=== PATIENT | female | born 1965 | race Caucasian/White ===

== ENCOUNTER 2016-11-05 21:33 | Emergency (ER) | payer MEDICAID ==
[~2016-11-05] VITALS: Ht 170.2 cm; Wt 113.8 kg
[~2016-11-05 21:33] MED LIST: AMOX875T PO; GABA300C10 PO; INSU100V10 SC; INSU100V13 SC; LINA1TAB5 PO; METF500T3 PO; SIMV20TA3 PO; Will bring list DOS
[2016-11-05 21:34] VITALS: BP 157/91
== END 2016-11-05 22:17 | disposition home or self-care (01) ==
LOC: ED 22:11
DX: L02.31 Cutaneous abscess of buttock (principal); E78.00 Pure hypercholesterolemia, unspecified; E11.9 Type 2 diabetes mellitus without complications; F12.10 Cannabis abuse, uncomplicated
CPT/HCPCS: 99282

== ENCOUNTER 2016-11-07 20:34 | Inpatient (IN) | payer MEDICAID ==
[~2016-11-07] VITALS: Ht 175.3 cm; Wt 95.5 kg
[~2016-11-07 20:34] MED LIST changes: +INSULIN ASPART 100 UNITS/ML, PEN ONE
[2016-11-07] MEDS ORDERED: ZIPRASIDONE 20 MG INJ IM ONE ×2 (21:12→21:30)
[2016-11-07 21:13] LABS: DAU SCREEN DISCLAIMER
[2016-11-07 22:16] LABS: HEMOGLOBIN 14.2 g/dL (11.7-16.4)
[2016-11-07 22:24] LABS: BLOOD UREA NITROGEN 17 mg/dL (7-18)
[2016-11-07] MEDS ORDERED: LORazepam 2 MG/ML, 1ML ONE (22:25)
[2016-11-07] MEDS ORDERED: LORazepam 2 MG/ML, 1ML IVPush ONE (22:30)
[2016-11-08] MEDS ORDERED: INSULIN REGULAR 100 UNITS/ML, 3ML VIAL SQ-INSULIN ONE (06:30)
[2016-11-08] MEDS ORDERED: LORazepam 2 MG/ML, 1ML ONE (07:19)
[2016-11-08] MEDS ORDERED: DIPHENHYDRAMINE 50 MG/ML, 1ML ONE (07:19)
[2016-11-08] MEDS ORDERED: LORazepam 2 MG/ML, 1ML IM ONE (07:30)
[2016-11-08] MEDS ORDERED: DIPHENHYDRAMINE 50 MG/ML, 1ML IM ONE (07:30)
[2016-11-08] MEDS ORDERED: ZIPRASIDONE 20 MG INJ IM ONE ×2 (08:00→09:09)
[2016-11-08] MEDS ORDERED: LORazepam 2 MG/ML, 1ML IVPush PRN (14:00)
[2016-11-08] MEDS ORDERED: DOCUSATE 100 MG CAPSULE PO PRN (14:00)
[2016-11-08] MEDS ORDERED: GUAIFENESIN/DM 200-20MG, 10ML UDC PO PRN (14:00)
[2016-11-08] MEDS ORDERED: ENOXAPARIN 40 MG/0.4 ML SQ SCH (14:00)
[2016-11-08] MEDS ORDERED: ACETAMINOPHEN 325 MG TABLET PO PRN (14:00)
[2016-11-08] MEDS: GABAPENTIN 300 MG CAPSULE PO SCH ×2 (16:30→21:06)
[2016-11-08] MEDS ORDERED: INSULIN ASPART 100 UNITS/ML, PEN SQ-INSULIN SCH ×2 (16:30→21:00)
[2016-11-08] MEDS ORDERED: INSULIN REGULAR 100 UNITS/ML, 3ML VIAL SQ-INSULIN SCH (16:30)
[2016-11-08 18:09] VITALS: BP 159/80
[2016-11-08 19:47] VITALS: BP 155/88
[2016-11-08] MEDS ORDERED: ZIPRASIDONE 20MG CAPSULE PO SCH (21:00)
[2016-11-08] MEDS ORDERED: SIMVASTATIN 20 MG TABLET PO SCH (21:00)
[2016-11-08] MEDS ORDERED: INSULIN DETEMIR 85 UNIT SC SCH (21:00)
[2016-11-09] MEDS ORDERED: INSULIN DETEMIR 100 UNITS/ML, PEN SQ-INSULIN SCH (08:00)
[2016-11-09] MEDS ORDERED: NICOTINE 21 MG/24 HR PATCH.TD24 TD SCH (09:00)
== END 2016-11-08 22:54 | DRG 897 ==
LOC: ED 21:16 → EDIP 11-08 06:27 → OBSVTOIN 11-08 13:43 → 3E 11-08 17:56
PROVIDERS: ADMIT Family Medicine; ATTEND Family Medicine
DX: F15.959 Other stimulant use, unspecified with stimulant-induced psychotic disorder, unspecified (principal); F23 Brief psychotic disorder; E11.65 Type 2 diabetes mellitus with hyperglycemia; F22 Delusional disorders; E78.5 Hyperlipidemia, unspecified; F32.9 Major depressive disorder, single episode, unspecified; Z72.0 Tobacco use
CPT/HCPCS: 36415; 70450; 80048; 80307; 82040; 82962; 84439; 84443; 84703; 85025; 93005; 96372; 96374; G0378; J1650; J1815; J3486; J1200; J2060

== ENCOUNTER 2016-11-21 21:44 | Emergency (ER) | payer MEDICAID ==
[~2016-11-21] VITALS: Ht 170.2 cm; Wt 128.1 kg
[~2016-11-21 21:44] MED LIST changes: -INSULIN ASPART 100 UNITS/ML, PEN ONE
[2016-11-21 22:58] LABS: BLOOD UREA NITROGEN 18 mg/dL (7-18)
[2016-11-22] MEDS ORDERED: FUROSEMIDE 20 MG TABLET PO ONE (00:30)
[2016-11-22 02:08] VITALS: BP 147/76
== END 2016-11-22 02:10 | disposition home or self-care (01) ==
LOC: ED 11-22 02:04
DX: L05.91 Pilonidal cyst without abscess (principal); L03.317 Cellulitis of buttock; R60.0 Localized edema; E11.9 Type 2 diabetes mellitus without complications; E78.00 Pure hypercholesterolemia, unspecified
CPT/HCPCS: 36415; 71020; 80048; 82040; 83880; 85025; 93005; 99285

== ENCOUNTER 2016-12-10 07:25 | Emergency (ER) | payer MEDICAID ==
[~2016-12-10] VITALS: Ht 170.2 cm; Wt 119.7 kg
[2016-12-10] MEDS ORDERED: MULT-6 PO (08:14)
[2016-12-10 08:31] LABS: BLOOD UREA NITROGEN 18 mg/dL (7-18)
[2016-12-10 09:04] VITALS: BP 141/87
== END 2016-12-10 09:35 | disposition home or self-care (01) ==
LOC: ED 08:39
DX: L03.032 Cellulitis of left toe (principal); L03.031 Cellulitis of right toe; E10.622 Type 1 diabetes mellitus with other skin ulcer; E11.9 Type 2 diabetes mellitus without complications; F17.210 Nicotine dependence, cigarettes, uncomplicated
CPT/HCPCS: 36415; 80048; 82040; 85025; 85651; 86141; 99285

== ENCOUNTER 2017-01-01 15:05 | Emergency (ER) | payer MEDICAID ==
[~2017-01-01] VITALS: Ht 170.2 cm; Wt 108.3 kg
[~2017-01-01 15:05] MED LIST changes: +MULT-6 PO
[2017-01-01 16:50] LABS: BLOOD UREA NITROGEN 12 mg/dL (7-18)
[2017-01-01 16:53] LABS: ASPARTATE AMINO TRANSFERASE 32 U/L (15-37)
[2017-01-01 18:01] VITALS: BP 128/80
[2017-01-01] MEDS ORDERED: MAGNESIUM CITRATE 300ML ORAL SOL PO ONE (19:30)
[2017-01-01] MEDS ORDERED: MAGNESIUM CITRATE 300ML ORAL SOL ONE (19:31)
== END 2017-01-01 19:44 | disposition home or self-care (01) ==
LOC: ED 19:03
DX: K59.00 Constipation, unspecified (principal); L89.892 Pressure ulcer of other site, stage 2; E11.621 Type 2 diabetes mellitus with foot ulcer; L97.511 Non-pressure chronic ulcer of other part of right foot limited to breakdown of skin; L97.512 Non-pressure chronic ulcer of other part of right foot with fat layer exposed; E78.00 Pure hypercholesterolemia, unspecified
CPT/HCPCS: 36415; 74020; 80053; 85025

== ENCOUNTER 2017-06-17 16:46 | Inpatient (IN) | payer MEDICAID ==
[~2017-06-17] VITALS: Ht 170.2 cm; Wt 102.8 kg
[~2017-06-17 16:46] MED LIST changes: +ACET650S12 PR; +AMPI3VIA IV; +DOCU-131 PO; +ERGO500017 PO; +HEPA50002 SQ; +HYDR20VI3 IVPush; +INSU100I18 SQ-INSULIN; +INSU100I28 SQ-INSULIN; -INSU100V10 SC; +INSU100V11 SC; +ONDA4VIA4 IVPush; +OXYC5SOL8 PO; +ZOLP5TAB PO
[2017-06-17] MEDS ORDERED: SODIUM CHLORIDE FLUSH 10ML SYR IVF ONE (17:30)
[2017-06-17 18:08] LABS: HEMATOCRIT 39.1 % (34.6-47.8); HEMOGLOBIN 13.7 g/dL (11.7-16.4); WHITE BLOOD COUNT 12.4 x10^3/uL (3.4-10)
[2017-06-17 18:19] LABS: BLOOD UREA NITROGEN 28 mg/dL (7-18)
[2017-06-17] MEDS ORDERED: SODIUM CHLORIDE 0.9% 1,000 ML IV ONE (19:28)
[2017-06-17] MEDS ORDERED: CEFAZOLIN PMX 1GM/50ML 50 ML IV ONE (19:30)
[2017-06-17] MEDS ORDERED: SODIUM CHLORIDE FLUSH 10ML SYR IVF PRN (19:30)
[2017-06-17] MEDS ORDERED: BISACODYL 10 MG SUPP PR PRN (20:00)
[2017-06-17] MEDS ORDERED: VANCOMYCIN PER PHARMACY MC PRN (20:00)
[2017-06-17] MEDS ORDERED: OXYcodone IR 5MG TABLET PO PRN (20:00)
[2017-06-17] MEDS ORDERED: ONDANSETRON 2MG/ML, 2ML IVPush PRN (20:00)
[2017-06-17] MEDS ORDERED: ERGOCALCIFEROL 50,000 UNIT CAPSULE PO SCH (20:00)
[2017-06-17] MEDS ORDERED: POLYETHYLENE GLYCOL 17 GM PACKET PO PRN (20:00)
[2017-06-17] MEDS ORDERED: ACETAMINOPHEN 325 MG TABLET PO PRN (20:00)
[2017-06-17] MEDS ORDERED: CEFAZOLIN PMX 1GM/50ML 50 ML ONE (20:29)
[2017-06-17] MEDS: SODIUM CHLORIDE 0.9% 1,000 ML IV SCH (20:34)
[2017-06-17] MEDS ORDERED: ZOLPIDEM 5MG TABLET PO SCH (21:00)
[2017-06-17] MEDS: SIMVASTATIN 20 MG TABLET PO SCH (21:00)
[2017-06-17] MEDS: GABAPENTIN 300 MG CAPSULE PO SCH (21:00)
[2017-06-17] MEDS ORDERED: INSULIN ASPART 100 UNITS/ML, PEN SQ-INSULIN SCH (21:00)
[2017-06-17] MEDS ORDERED: PHARMACOKINETIC MONITORING MC PRN (22:00)
[2017-06-17] MEDS ORDERED: PHARMACOKINETIC CONSULTATION MC ONE (22:00)
[2017-06-18] MEDS: PIPERACILLIN/TAZO/PMX 3.375GM 50 ML IV SCH ×4 (00:15→18:09)
[2017-06-18] MEDS: morphine SULFATE 10 MG/ML, 1ML IVPush PRN ×6 (00:15→16:06)
[2017-06-18] MEDS: HEPARIN 5,000 UNITS/ML, 1ML SQ SCH ×3 (00:16→15:49)
[2017-06-18] MEDS: VANCOMYCIN 1,600 MG in SODIUM CHLORIDE 0.9% 250 ML IV SCH (01:30)
[2017-06-18 01:42] VITALS: BP 104/68
[2017-06-18] MEDS: INSULIN DETEMIR 100 UNITS/ML, PEN SQ-INSULIN SCH ×3 (01:56→20:24)
[2017-06-18] MEDS: INSULIN ASPART 100 UNITS/ML, 3ML PEN HIGH DOSE SS SQ-INSULIN SCH ×5 (01:56→20:24)
[2017-06-18 02:09] VITALS: BP 122/61
[2017-06-18] MEDS: SODIUM CHLORIDE 0.9% 1,000 ML IV SCH ×2 (05:52→20:26)
[2017-06-18 05:56] LABS: HEMATOCRIT 36.7 % (34.6-47.8); HEMOGLOBIN 12.9 g/dL (11.7-16.4); WHITE BLOOD COUNT 10.1 x10^3/uL (3.4-10)
[2017-06-18 06:08] LABS: ASPARTATE AMINO TRANSFERASE 22 U/L (15-37); BLOOD UREA NITROGEN 31 mg/dL (7-18)
[2017-06-18] MEDS ORDERED: GADOBUTROL 10 MMOL/10 ML PFS ONE ×2 (07:47→10:05)
[2017-06-18 08:16] VITALS: BP 97/61
[2017-06-18] MEDS: GABAPENTIN 300 MG CAPSULE PO SCH ×2 (08:19→20:23)
[2017-06-18] MEDS ORDERED: SENNA/DOCUSATE TABLET PO SCH (09:00)
[2017-06-18 13:31] VITALS: BP 110/60
[2017-06-18 13:48] LABS: HCG UR LOT HCG7030192
[2017-06-18 13:56] LABS: HCG UR OBC PASS
[2017-06-18] MEDS ORDERED: MIDAZOLAM 1 MG/ML, 2ML ONE (14:00)
[2017-06-18] MEDS ORDERED: FENTANYL PF 100 MCG/2ML ONE (14:00)
[2017-06-18] MEDS ORDERED: ROCURONIUM 10 MG/ML,10ML ONE (14:01)
[2017-06-18] MEDS ORDERED: SUCCINYLCHOLINE 20 MG/ML, 10ML ONE (14:01)
[2017-06-18] MEDS ORDERED: NEOSTIGMINE 1 MG/ML, 10ML ONE (14:01)
[2017-06-18] MEDS ORDERED: GLYCOPYRROLATE 0.2MG/1ML, 5ML ONE (14:01)
[2017-06-18] MEDS ORDERED: PROPOFOL 10 MG/ML, 20ML ONE (14:01)
[2017-06-18] MEDS ORDERED: hydrALAzine 20 MG/ML, 1ML IV PRN (14:30)
[2017-06-18] MEDS ORDERED: OXYcodone 5 MG/5 ML ORAL.SOL UDC PO PRN (14:30)
[2017-06-18] MEDS ORDERED: FENTANYL PF 100 MCG/2ML IV PRN (14:30)
[2017-06-18] MEDS ORDERED: ONDANSETRON 2MG/ML, 2ML IVPush PRN ×2 (14:30→19:00)
[2017-06-18] MEDS ORDERED: HYDROmorphone 1 MG/ML, 1ML IV PRN (14:30)
[2017-06-18] MEDS ORDERED: ACETAMINOPHEN 325 MG TABLET PO PRN ×2 (14:30→19:00)
[2017-06-18] MEDS ORDERED: LABETALOL 5MG/ML, 20ML IV PRN (14:30)
[2017-06-18] MEDS ORDERED: METOCLOPRAMIDE 5 MG/ML, 2ML IV PRN (14:30)
[2017-06-18] MEDS ORDERED: OXYcodone IR 5MG TABLET ONE (18:31)
[2017-06-18 18:58] VITALS: BP 100/53
[2017-06-18] MEDS ORDERED: BISACODYL 10 MG SUPP PR PRN (19:00)
[2017-06-18] MEDS: SIMVASTATIN 20 MG TABLET PO SCH (20:23)
[2017-06-18] MEDS: ZOLPIDEM 5MG TABLET PO SCH (21:00)
[2017-06-18] MEDS: OXYcodone IR 5MG TABLET PO PRN (22:43)
[2017-06-19] MEDS: PIPERACILLIN/TAZO/PMX 3.375GM 50 ML IV SCH ×4 (00:21→18:19)
[2017-06-19] MEDS: HEPARIN 5,000 UNITS/ML, 1ML SQ SCH ×3 (00:21→16:19)
[2017-06-19 01:37] VITALS: BP 100/64
[2017-06-19] MEDS: VANCOMYCIN 1,600 MG in SODIUM CHLORIDE 0.9% 250 ML IV SCH (02:07)
[2017-06-19] MEDS: OXYcodone IR 5MG TABLET PO PRN ×3 (05:26→18:29)
[2017-06-19] MEDS: INSULIN ASPART 100 UNITS/ML, 3ML PEN HIGH DOSE SS SQ-INSULIN SCH ×4 (07:00→21:15)
[2017-06-19 08:06] VITALS: BP 96/62
[2017-06-19] MEDS: INSULIN DETEMIR 100 UNITS/ML, PEN SQ-INSULIN SCH ×2 (08:13→21:15)
[2017-06-19] MEDS: SODIUM CHLORIDE 0.9% 1,000 ML IV SCH ×2 (08:14→18:19)
[2017-06-19] MEDS: SENNA/DOCUSATE TABLET PO SCH (08:14)
[2017-06-19] MEDS: GABAPENTIN 300 MG CAPSULE PO SCH ×2 (08:14→21:14)
[2017-06-19] MEDS: morphine SULFATE 10 MG/ML, 1ML IVPush PRN ×3 (08:15→19:47)
[2017-06-19 16:38] VITALS: BP 108/70
[2017-06-19 20:13] VITALS: BP 97/60
[2017-06-19] MEDS: ZOLPIDEM 5MG TABLET PO SCH (21:25)
[2017-06-19] MEDS: SIMVASTATIN 20 MG TABLET PO SCH (21:33)
[2017-06-20] MEDS: PIPERACILLIN/TAZO/PMX 3.375GM 50 ML IV SCH ×4 (00:06→21:08)
[2017-06-20] MEDS: morphine SULFATE 10 MG/ML, 1ML IVPush PRN ×7 (00:11→23:59)
[2017-06-20 01:54] VITALS: BP 103/65
[2017-06-20] MEDS: SODIUM CHLORIDE 0.9% 1,000 ML IV SCH ×2 (03:35→14:21)
[2017-06-20] MEDS: INSULIN ASPART 100 UNITS/ML, 3ML PEN HIGH DOSE SS SQ-INSULIN SCH ×4 (07:00→21:00)
[2017-06-20] MEDS: INSULIN DETEMIR 100 UNITS/ML, PEN SQ-INSULIN SCH ×2 (08:00→21:08)
[2017-06-20] MEDS: GABAPENTIN 300 MG CAPSULE PO SCH ×2 (08:15→21:08)
[2017-06-20] MEDS: SENNA/DOCUSATE TABLET PO SCH (08:15)
[2017-06-20 08:40] VITALS: BP 120/72
[2017-06-20] MEDS ORDERED: BUPIVACAINE/PF 0.5% ONE (14:16)
[2017-06-20] MEDS ORDERED: LIDOCAINE/PF 1%, 30ML ONE (14:16)
[2017-06-20] MEDS ORDERED: EPINEPHRINE 1 MG/ML, 1ML ONE (14:17)
[2017-06-20 15:27] VITALS: BP 134/78
[2017-06-20] MEDS ORDERED: FENTANYL PF 100 MCG/2ML ONE ×2 (15:44)
[2017-06-20] MEDS ORDERED: MIDAZOLAM 1 MG/ML, 2ML ONE (15:44)
[2017-06-20] MEDS ORDERED: PROPOFOL 10 MG/ML, 20ML ONE ×2 (15:45→18:41)
[2017-06-20] MEDS ORDERED: ONDANSETRON 2MG/ML, 2ML ONE ×2 (15:46→18:41)
[2017-06-20] MEDS ORDERED: PROMETHAZINE 25 MG/ML, 1ML IV PRN (16:30)
[2017-06-20] MEDS ORDERED: FENTANYL PF 100 MCG/2ML IV PRN (16:30)
[2017-06-20] MEDS ORDERED: ACETAMINOPHEN 325 MG TABLET PO PRN (16:30)
[2017-06-20] MEDS ORDERED: ONDANSETRON 2MG/ML, 2ML IVPush PRN (16:30)
[2017-06-20] MEDS ORDERED: LABETALOL 5MG/ML, 20ML IV PRN (16:30)
[2017-06-20] MEDS ORDERED: HYDROmorphone 1 MG/ML, 1ML IV PRN (16:30)
[2017-06-20] MEDS ORDERED: OXYcodone 5 MG/5 ML ORAL.SOL UDC PO PRN (16:30)
[2017-06-20] MEDS ORDERED: MEPERIDINE/PF 25MG/0.5ML IVPush PRN (16:30)
[2017-06-20] MEDS ORDERED: hydrALAzine 20 MG/ML, 1ML IV PRN (16:30)
[2017-06-20] MEDS ORDERED: ROCURONIUM 10 MG/ML,10ML ONE (18:39)
[2017-06-20] MEDS ORDERED: PIPERACILLIN/TAZO/PMX 3.375GM 50 ML ONE (19:00)
[2017-06-20] MEDS ORDERED: SUCCINYLCHOLINE 20 MG/ML, 10ML ONE (19:34)
[2017-06-20] MEDS ORDERED: ACETAMINOPHEN 650 MG/20.3 ML UDC ONE (20:08)
[2017-06-20] MEDS ORDERED: OXYcodone 5 MG/5 ML ORAL.SOL UDC ONE (20:08)
[2017-06-20 21:00] VITALS: BP 118/64
[2017-06-20] MEDS: ZOLPIDEM 5MG TABLET PO SCH (22:24)
[2017-06-20] MEDS: CIPROFLOXACIN/HYDROCORTISONE EAR SUSP 0.2-1%, 10ML LEFT EAR SCH (22:25)
[2017-06-20] MEDS: SIMVASTATIN 20 MG TABLET PO SCH (22:27)
[2017-06-21] MEDS: morphine SULFATE 10 MG/ML, 1ML IVPush PRN ×6 (03:20→23:46)
[2017-06-21] MEDS: PIPERACILLIN/TAZO/PMX 3.375GM 50 ML IV SCH ×3 (03:22→15:05)
[2017-06-21 03:30] VITALS: BP 122/66
[2017-06-21] MEDS: SODIUM CHLORIDE 0.9% 1,000 ML IV SCH ×2 (05:24→16:21)
[2017-06-21] MEDS: CIPROFLOXACIN/HYDROCORTISONE EAR SUSP 0.2-1%, 10ML LEFT EAR SCH ×2 (05:24→17:10)
[2017-06-21 05:38] LABS: HEMATOCRIT 31.6 % (34.6-47.8); HEMOGLOBIN 10.9 g/dL (11.7-16.4); WHITE BLOOD COUNT 8.7 x10^3/uL (3.4-10)
[2017-06-21 05:49] LABS: BLOOD UREA NITROGEN 19 mg/dL (7-18)
[2017-06-21] MEDS: INSULIN ASPART 100 UNITS/ML, 3ML PEN HIGH DOSE SS SQ-INSULIN SCH ×4 (07:00→20:21)
[2017-06-21 08:00] VITALS: BP 94/53
[2017-06-21] MEDS: INSULIN DETEMIR 100 UNITS/ML, PEN SQ-INSULIN SCH ×2 (09:07→20:30)
[2017-06-21] MEDS: SENNA/DOCUSATE TABLET PO SCH (09:08)
[2017-06-21] MEDS: GABAPENTIN 300 MG CAPSULE PO SCH ×2 (09:08→20:12)
[2017-06-21 14:00] VITALS: BP 105/64
[2017-06-21] MEDS: OXYcodone IR 5MG TABLET PO PRN (17:48)
[2017-06-21 20:01] VITALS: BP 130/72
[2017-06-21] MEDS ORDERED: POLYETHYLENE GLYCOL 17 GM PACKET ONE (20:06)
[2017-06-21] MEDS: PIPERACILLIN/TAZO 3.375 GM in SODIUM CHLORIDE 0.9% 50 ML IV SCH (20:13)
[2017-06-21] MEDS: SIMVASTATIN 20 MG TABLET PO SCH (22:35)
[2017-06-21] MEDS: ZOLPIDEM 5MG TABLET PO SCH (22:35)
[2017-06-22] MEDS: SODIUM CHLORIDE 0.9% 1,000 ML IV SCH ×2 (02:57→13:08)
[2017-06-22] MEDS: morphine SULFATE 10 MG/ML, 1ML IVPush PRN ×3 (02:57→20:39)
[2017-06-22] MEDS: PIPERACILLIN/TAZO 3.375 GM in SODIUM CHLORIDE 0.9% 50 ML IV SCH ×4 (02:57→20:35)
[2017-06-22 03:00] VITALS: BP 126/77
[2017-06-22 05:30] LABS: HEMATOCRIT 31.8 % (34.6-47.8); HEMOGLOBIN 11.2 g/dL (11.7-16.4); WHITE BLOOD COUNT 8.5 x10^3/uL (3.4-10)
[2017-06-22 05:50] LABS: BLOOD UREA NITROGEN 19 mg/dL (7-18)
[2017-06-22] MEDS: INSULIN ASPART 100 UNITS/ML, 3ML PEN HIGH DOSE SS SQ-INSULIN SCH ×4 (07:00→20:37)
[2017-06-22 07:59] VITALS: BP 143/80
[2017-06-22] MEDS: OXYcodone IR 5MG TABLET PO PRN ×3 (10:06→23:05)
[2017-06-22] MEDS: GABAPENTIN 300 MG CAPSULE PO SCH ×2 (10:07→20:35)
[2017-06-22] MEDS: INSULIN DETEMIR 100 UNITS/ML, PEN SQ-INSULIN SCH ×2 (10:07→20:37)
[2017-06-22] MEDS: CIPROFLOXACIN/HYDROCORTISONE EAR SUSP 0.2-1%, 10ML LEFT EAR SCH ×2 (10:07→20:36)
[2017-06-22] MEDS: SENNA/DOCUSATE TABLET PO SCH (10:08)
[2017-06-22 14:00] VITALS: BP 120/68
[2017-06-22 18:52] VITALS: BP 156/80
[2017-06-22] MEDS: SIMVASTATIN 20 MG TABLET PO SCH (20:35)
[2017-06-22] MEDS: ZOLPIDEM 5MG TABLET PO SCH (20:35)
[2017-06-22] MEDS ORDERED: SIMVASTATIN 20 MG TABLET PO SCH (21:00)
[2017-06-23 00:10] VITALS: BP 137/61
[2017-06-23] MEDS: SODIUM CHLORIDE 0.9% 1,000 ML IV SCH ×3 (00:26→22:44)
[2017-06-23] MEDS: morphine SULFATE 10 MG/ML, 1ML IVPush PRN (00:27)
[2017-06-23] MEDS: PIPERACILLIN/TAZO 3.375 GM in SODIUM CHLORIDE 0.9% 50 ML IV SCH (02:39)
[2017-06-23] MEDS: OXYcodone IR 5MG TABLET PO PRN ×4 (05:50→21:01)
[2017-06-23] MEDS: INSULIN ASPART 100 UNITS/ML, 3ML PEN HIGH DOSE SS SQ-INSULIN SCH ×4 (07:00→21:00)
[2017-06-23] MEDS ORDERED: PHARMACY MAY ADJ FOR RENAL FX MC PRN (07:30)
[2017-06-23 08:28] VITALS: BP 136/80
[2017-06-23] MEDS: CIPROFLOXACIN/HYDROCORTISONE EAR SUSP 0.2-1%, 10ML LEFT EAR SCH ×2 (08:53→20:43)
[2017-06-23] MEDS: MEROPENEM 1 GM in SODIUM CHLORIDE 0.9% 100 ML IV SCH ×2 (08:53→16:51)
[2017-06-23] MEDS: INSULIN DETEMIR 100 UNITS/ML, PEN SQ-INSULIN SCH ×2 (08:55→21:00)
[2017-06-23] MEDS: GABAPENTIN 300 MG CAPSULE PO SCH ×2 (08:55→20:44)
[2017-06-23] MEDS: SENNA/DOCUSATE TABLET PO SCH (08:55)
[2017-06-23] MEDS ORDERED: morphine SULFATE 10 MG/ML, 1ML IVPush PRN (09:30)
[2017-06-23 14:53] VITALS: BP 133/82
[2017-06-23 20:21] VITALS: BP 155/94
[2017-06-23] MEDS: ZOLPIDEM 5MG TABLET PO SCH (20:44)
[2017-06-23] MEDS: SIMVASTATIN 20 MG TABLET PO SCH (20:44)
[2017-06-24 00:32] VITALS: BP 131/71
[2017-06-24] MEDS: MEROPENEM 1 GM in SODIUM CHLORIDE 0.9% 100 ML IV SCH ×3 (00:33→17:49)
[2017-06-24] MEDS: OXYcodone IR 5MG TABLET PO PRN ×4 (05:42→21:51)
[2017-06-24] MEDS: INSULIN ASPART 100 UNITS/ML, 3ML PEN HIGH DOSE SS SQ-INSULIN SCH ×4 (07:00→21:03)
[2017-06-24 07:39] VITALS: BP 144/82
[2017-06-24] MEDS ORDERED: ERGOCALCIFEROL 50,000 UNIT CAPSULE PO SCH (09:00)
[2017-06-24] MEDS: CIPROFLOXACIN/HYDROCORTISONE EAR SUSP 0.2-1%, 10ML LEFT EAR SCH ×2 (09:00→21:02)
[2017-06-24] MEDS: SODIUM CHLORIDE 0.9% 1,000 ML IV SCH ×2 (09:10→21:52)
[2017-06-24] MEDS: SENNA/DOCUSATE TABLET PO SCH (09:11)
[2017-06-24] MEDS: GABAPENTIN 300 MG CAPSULE PO SCH ×2 (09:11→21:01)
[2017-06-24] MEDS: INSULIN DETEMIR 100 UNITS/ML, PEN SQ-INSULIN SCH ×2 (09:15→21:02)
[2017-06-24 10:46] LABS: HEMATOCRIT 33.1 % (34.6-47.8); HEMOGLOBIN 11.4 g/dL (11.7-16.4); WHITE BLOOD COUNT 9.9 x10^3/uL (3.4-10)
[2017-06-24 10:57] LABS: BLOOD UREA NITROGEN 14 mg/dL (7-18)
[2017-06-24] MEDS: DAPTOMYCIN IVPB SCH (11:58)
[2017-06-24] MEDS: SODIUM CHLORIDE 0.9% IVPB SCH (11:58)
[2017-06-24 14:00] VITALS: BP 144/76
[2017-06-24 20:31] VITALS: BP 144/79
[2017-06-24] MEDS: ZOLPIDEM 5MG TABLET PO SCH (21:01)
[2017-06-25] MEDS: MEROPENEM 1 GM in SODIUM CHLORIDE 0.9% 100 ML IV SCH ×3 (00:04→17:08)
[2017-06-25 02:13] VITALS: BP 138/86
[2017-06-25] MEDS: INSULIN ASPART 100 UNITS/ML, 3ML PEN HIGH DOSE SS SQ-INSULIN SCH ×4 (07:00→20:32)
[2017-06-25] MEDS: INSULIN DETEMIR 100 UNITS/ML, PEN SQ-INSULIN SCH ×2 (07:28→20:31)
[2017-06-25] MEDS: OXYcodone IR 5MG TABLET PO PRN ×4 (07:28→23:14)
[2017-06-25] MEDS: GABAPENTIN 300 MG CAPSULE PO SCH ×2 (07:29→20:30)
[2017-06-25] MEDS: CIPROFLOXACIN/HYDROCORTISONE EAR SUSP 0.2-1%, 10ML LEFT EAR SCH ×2 (07:29→20:30)
[2017-06-25] MEDS: SENNA/DOCUSATE TABLET PO SCH (07:29)
[2017-06-25] MEDS: SODIUM CHLORIDE 0.9% 1,000 ML IV SCH ×2 (07:29→17:09)
[2017-06-25 08:00] VITALS: BP 126/61
[2017-06-25] MEDS: DAPTOMYCIN IVPB SCH (11:09)
[2017-06-25] MEDS: SODIUM CHLORIDE 0.9% IVPB SCH (11:09)
[2017-06-25 14:00] VITALS: BP 126/81
[2017-06-25] MEDS: ZOLPIDEM 5MG TABLET PO SCH (20:30)
[2017-06-25 20:47] VITALS: BP 146/85
[2017-06-26 01:10] VITALS: BP 149/76
[2017-06-26] MEDS: MEROPENEM 1 GM in SODIUM CHLORIDE 0.9% 100 ML IV SCH ×3 (01:16→16:53)
[2017-06-26] MEDS: SODIUM CHLORIDE 0.9% 1,000 ML IV SCH ×2 (03:48→13:58)
[2017-06-26] MEDS: INSULIN ASPART 100 UNITS/ML, 3ML PEN HIGH DOSE SS SQ-INSULIN SCH ×4 (07:00→20:05)
[2017-06-26 07:16] VITALS: BP 126/73
[2017-06-26] MEDS: INSULIN DETEMIR 100 UNITS/ML, PEN SQ-INSULIN SCH ×2 (08:00→20:04)
[2017-06-26] MEDS: OXYcodone IR 5MG TABLET PO PRN ×3 (08:58→20:05)
[2017-06-26] MEDS: SENNA/DOCUSATE TABLET PO SCH (08:58)
[2017-06-26] MEDS: GABAPENTIN 300 MG CAPSULE PO SCH ×2 (08:58→20:05)
[2017-06-26] MEDS: CIPROFLOXACIN/HYDROCORTISONE EAR SUSP 0.2-1%, 10ML LEFT EAR SCH ×2 (08:59→20:05)
[2017-06-26] MEDS: SODIUM CHLORIDE 0.9% IVPB SCH (12:38)
[2017-06-26] MEDS: DAPTOMYCIN IVPB SCH (12:38)
[2017-06-26 12:51] VITALS: BP 122/78
[2017-06-26 19:55] VITALS: BP 130/79
[2017-06-26] MEDS: ZOLPIDEM 5MG TABLET PO SCH (20:05)
[2017-06-27] MEDS: MEROPENEM 1 GM in SODIUM CHLORIDE 0.9% 100 ML IV SCH ×3 (00:30→16:57)
[2017-06-27] MEDS: SODIUM CHLORIDE 0.9% 1,000 ML IV SCH ×3 (00:30→20:16)
[2017-06-27 01:52] VITALS: BP 113/72
[2017-06-27] MEDS: OXYcodone IR 5MG TABLET PO PRN ×4 (07:16→20:16)
[2017-06-27] MEDS: INSULIN ASPART 100 UNITS/ML, 3ML PEN HIGH DOSE SS SQ-INSULIN SCH ×4 (07:20→20:28)
[2017-06-27 07:27] VITALS: BP 116/75
[2017-06-27] MEDS: GABAPENTIN 300 MG CAPSULE PO SCH ×2 (08:35→20:16)
[2017-06-27] MEDS: CIPROFLOXACIN/HYDROCORTISONE EAR SUSP 0.2-1%, 10ML LEFT EAR SCH (08:35)
[2017-06-27] MEDS: SENNA/DOCUSATE TABLET PO SCH (08:35)
[2017-06-27] MEDS: INSULIN DETEMIR 100 UNITS/ML, PEN SQ-INSULIN SCH ×2 (08:36→20:55)
[2017-06-27] MEDS: SODIUM CHLORIDE 0.9% IVPB SCH (11:07)
[2017-06-27] MEDS: DAPTOMYCIN IVPB SCH (11:07)
[2017-06-27 13:13] VITALS: BP 120/79
[2017-06-27 20:01] VITALS: BP 112/68
[2017-06-27] MEDS: ZOLPIDEM 5MG TABLET PO SCH (20:55)
[2017-06-28] MEDS: MEROPENEM 1 GM in SODIUM CHLORIDE 0.9% 100 ML IV SCH ×3 (01:13→18:17)
[2017-06-28 01:45] VITALS: BP 146/77
[2017-06-28] MEDS: OXYcodone IR 5MG TABLET PO PRN ×4 (02:54→19:43)
[2017-06-28] MEDS: SODIUM CHLORIDE 0.9% 1,000 ML IV SCH ×2 (06:06→18:17)
[2017-06-28] MEDS: INSULIN ASPART 100 UNITS/ML, 3ML PEN HIGH DOSE SS SQ-INSULIN SCH ×4 (07:00→21:00)
[2017-06-28 08:39] VITALS: BP 142/80
[2017-06-28] MEDS: SENNA/DOCUSATE TABLET PO SCH (08:49)
[2017-06-28] MEDS: GABAPENTIN 300 MG CAPSULE PO SCH ×2 (08:50→19:43)
[2017-06-28] MEDS: INSULIN DETEMIR 100 UNITS/ML, PEN SQ-INSULIN SCH ×2 (08:52→22:04)
[2017-06-28] MEDS: SODIUM CHLORIDE 0.9% IVPB SCH (11:11)
[2017-06-28] MEDS: DAPTOMYCIN IVPB SCH (11:11)
[2017-06-28 14:11] VITALS: BP 140/78
[2017-06-28] MEDS: HEPARIN 5,000 UNITS/ML, 1ML SQ SCH (18:16)
[2017-06-28 21:21] VITALS: BP 114/67
[2017-06-28] MEDS: ZOLPIDEM 5MG TABLET PO SCH (21:54)
[2017-06-29] MEDS: HEPARIN 5,000 UNITS/ML, 1ML SQ SCH ×2 (00:33→09:07)
[2017-06-29] MEDS: MEROPENEM 1 GM in SODIUM CHLORIDE 0.9% 100 ML IV SCH ×2 (00:33→09:07)
[2017-06-29] MEDS: OXYcodone IR 5MG TABLET PO PRN ×3 (01:46→13:12)
[2017-06-29 02:36] VITALS: BP 118/72
[2017-06-29] MEDS: SODIUM CHLORIDE 0.9% 1,000 ML IV SCH (03:34)
[2017-06-29 06:37] VITALS: BP 120/77
[2017-06-29] MEDS: INSULIN ASPART 100 UNITS/ML, 3ML PEN HIGH DOSE SS SQ-INSULIN SCH ×2 (07:00→11:00)
[2017-06-29 08:20] LABS: HEMATOCRIT 32.4 % (34.6-47.8); HEMOGLOBIN 11.3 g/dL (11.7-16.4)
[2017-06-29 08:31] LABS: BLOOD UREA NITROGEN 16 mg/dL (7-18)
[2017-06-29] MEDS: INSULIN DETEMIR 100 UNITS/ML, PEN SQ-INSULIN SCH (09:06)
[2017-06-29] MEDS: GABAPENTIN 300 MG CAPSULE PO SCH (09:07)
[2017-06-29] MEDS: SENNA/DOCUSATE TABLET PO SCH (09:07)
[2017-06-29] MEDS ORDERED: DOXYCYCLINE 100MG TABLET PO SCH (11:00)
[2017-06-29] MEDS ORDERED: MUPI22OI2 TP (13:04)
[2017-06-29] MEDS ORDERED: DOXY100T PO (13:04)
[2017-06-29 14:00] VITALS: BP 122/76
[2017-06-29] MEDS ORDERED: MUPIROCIN OINT 2%, 22GM TP SCH (18:00)
== END 2017-06-29 16:30 | DRG 616 ==
LOC: ED 17:54 → EDIP 19:29 → 3NE 21:15 → UNDODISIN 06-18 17:01
PROVIDERS: ADMIT Hospitalist; ATTEND Hospitalist
PROC: 0JBR0ZZ Excision of Left Foot Subcutaneous Tissue and Fascia, Open Approach (ICD-10-PCS; 2017-06-18)
PROC: 0JBR0ZZ Excision of Left Foot Subcutaneous Tissue and Fascia, Open Approach (ICD-10-PCS; 2017-06-20)
PROC: 0Y6Q0Z0 Detachment at Left 1st Toe, Complete, Open Approach (ICD-10-PCS; principal; 2017-06-20 16:30)
PROC: 02HV33Z Insertion of Infusion Device into Superior Vena Cava, Percutaneous Approach (ICD-10-PCS; 2017-06-24)
PROC: B5181ZA Fluoroscopy of Superior Vena Cava using Low Osmolar Contrast, Guidance (ICD-10-PCS; 2017-06-24)
PROC: B548ZZA Ultrasonography of Superior Vena Cava, Guidance (ICD-10-PCS; 2017-06-24)
DX: E11.621 Type 2 diabetes mellitus with foot ulcer (principal); G93.40 Encephalopathy, unspecified; E11.22 Type 2 diabetes mellitus with diabetic chronic kidney disease; E87.1 Hypo-osmolality and hyponatremia; L03.116 Cellulitis of left lower limb; G60.8 Other hereditary and idiopathic neuropathies; M86.8X7 Other osteomyelitis, ankle and foot; E11.42 Type 2 diabetes mellitus with diabetic polyneuropathy; N25.0 Renal osteodystrophy; E11.628 Type 2 diabetes mellitus with other skin complications; E11.69 Type 2 diabetes mellitus with other specified complication; E78.00 Pure hypercholesterolemia, unspecified; E78.5 Hyperlipidemia, unspecified; F12.90 Cannabis use, unspecified, uncomplicated; F31.9 Bipolar disorder, unspecified; G89.29 Other chronic pain; H60.90 Unspecified otitis externa, unspecified ear; Z79.899 Other long term (current) drug therapy; H66.90 Otitis media, unspecified, unspecified ear; I12.9 Hypertensive chronic kidney disease with stage 1 through stage 4 chronic kidney disease, or unspecified chronic kidney disease; L97.529 Non-pressure chronic ulcer of other part of left foot with unspecified severity; N18.9 Chronic kidney disease, unspecified; Z59.0 Homelessness; Z72.0 Tobacco use; Z79.4 Long term (current) use of insulin; Z89.412 Acquired absence of left great toe
CPT/HCPCS: 36415; 36569; 76937; 77001; 80048; 80053; 81025; 82040; 82550; 82962; 83036; 85025; 85651; 86140; 86141; 87040; 87070; 87075; 87077; 87147; 87186; 87205; 88305; 96374; A9585; J0171; J0690; J0878; J1644; J1815; J2185; J2250; J2405; J2543; J2704; J2710; J3010; J3370; J3490; C1751; J0330; J2270; J7030; J7050

== ENCOUNTER 2017-11-25 05:00 | Inpatient (IN) | payer MEDICAID ==
[~2017-11-25] VITALS: Ht 170.2 cm; Wt 110.0 kg
[~2017-11-25 05:00] MED LIST changes: +DOXY100T PO; +MUPI22OI2 TP
[2017-11-25] MEDS ORDERED: NICOTINE 7 MG/24 HR PATCH.TD24 TD SCH (07:00)
[2017-11-25 07:04] LABS: BASOPHILS # (AUTO) 0.03 x10^3/uL (0-0.1); BASOPHILS % (AUTO) 0 % (0-1); EOSINOPHILS # (AUTO) 0.07 x10^3/uL (0-0.4); EOSINOPHILS % (AUTO) 0 % (1-7); LYMPHOCYTES # (AUTO) 1.36 x10^3/uL (1-3.4); LYMPHOCYTES % (AUTO) 8 % (22-44); MD NO; MEAN CORPUSCULAR HEMOGLOBIN 31.3 pg (27.0-34.8); MEAN CORPUSCULAR VOLUME 92.2 fL (80-100); MONOCYTES # (AUTO) 0.64 x10^3/uL (0.2-0.8); MONOCYTES % (AUTO) 4 % (2-9); NEUTROPHILS # (AUTO) 15.81 x10^3/uL (1.8-6.8); NEUTROPHILS % (AUTO) 88 % (42-75); PLATELET COUNT 294 x10^3/uL (130-400); RED BLOOD COUNT 4.45 x10^6/uL (3.82-5.3); RED CELL DISTRIBUTION WIDTH 13.5 % (9.6-15.2)
[2017-11-25 07:23] LABS: ALANINE AMINOTRANSFERASE 26 U/L (12-78); ALBUMIN 3.8 g/dL (3.4-5.0); ANION GAP 12 mmol/L (5-15); CALCIUM 7.9 mg/dL (8.5-10.1); CHLORIDE 107 mmol/L (98-107); CREATININE 0.89 mg/dL (0.55-1.02); SALICYLATE LEVEL 5.3 mg/dL (2.8-20.0)
[2017-11-25 07:28] LABS: ALKALINE PHOSPHATASE 73 U/L (45-117); BILIRUBIN,TOTAL 0.8 mg/dL (0.2-1.0); TOTAL PROTEIN 7.1 g/dL (6.4-8.2)
[2017-11-25 07:29] LABS: ACETAMINOPHEN < 2 mcg/mL (10-30)
[2017-11-25 07:37] LABS: AMPHETAMINE SCREEN, URINE Negative (Negative); BARBITURATE SCREEN, URINE Negative (Negative); BENZODIAZEPINE SCREEN, URINE Negative (Negative); CANNABINOID SCREEN, URINE Positive (Negative); COCAINE SCREEN, URINE Negative (Negative); METHADONE SCREEN, URINE Negative (Negative); OPIATE SCREEN, URINE Negative (Negative)
[2017-11-25 08:48] LABS: MICROSCOPIC NOT IND
[2017-11-25 08:53] LABS: CULTURE INDICATED? NO
[2017-11-25] MEDS ORDERED: HALOPERIDOL 5 MG/ML IM ONE (09:00)
[2017-11-25] MEDS ORDERED: HALOPERIDOL 5 MG TABLET ONE (09:23)
[2017-11-25] MEDS ORDERED: HALOPERIDOL 5 MG TABLET PO ONE (09:30)
[2017-11-25] MEDS ORDERED: INSULIN GLARGINE 100 UNITS/ML, PEN SQ-INSULIN SCH ×2 (12:00→21:00)
[2017-11-25] MEDS ORDERED: ONDANSETRON ODT 4 MG PO PRN (12:00)
[2017-11-25] MEDS ORDERED: POLYETHYLENE GLYCOL 17 GM PACKET PO PRN (12:00)
[2017-11-25 12:09] LABS: INTERNATIONAL NORMALIZED RATIO 1.02 (0.93-1.1); PROTHROMBIN TIME 10.6 Seconds (9.6-11.5)
[2017-11-25 12:29] LABS: FREE T4 (FREE THYROXINE) 1.4 ng/dL (0.76-1.46); THYROID STIMULATING HORMONE 1.3 mIU/L (0.358-3.740)
[2017-11-25 14:14] VITALS: BP 119/72
[2017-11-25 14:28] VITALS: BP 119/72
[2017-11-25] MEDS: INSULIN REGULAR 100 UNITS/ML, 3ML VIAL SQ-INSULIN SCH ×2 (16:00→21:18)
[2017-11-25] MEDS: LORazepam 1MG TABLET PO PRN ×2 (16:57→21:18)
[2017-11-25] MEDS: HALOPERIDOL 5 MG TABLET PO PRN ×2 (17:02→21:18)
[2017-11-25] MEDS ORDERED: LISI-167 PO (17:25)
[2017-11-25] MEDS ORDERED: METF10002 PO (17:31)
[2017-11-25] MEDS ORDERED: SIMV20TA3 PO (17:33)
[2017-11-25] MEDS ORDERED: LINA5TAB PO (17:34)
[2017-11-25] MEDS ORDERED: INSU100I28 SC (17:36)
[2017-11-25] MEDS: metFORMIN 500 MG TABLET PO SCH ×2 (17:57→18:00)
[2017-11-25 19:54] VITALS: BP 128/61
[2017-11-25] MEDS: SIMVASTATIN 20 MG TABLET PO SCH (21:18)
[2017-11-25] MEDS: INSULIN GLARGINE 100 UNITS/ML, PEN SQ-INSULIN SCH (21:19)
[2017-11-26] MEDS: LORazepam 1MG TABLET PO PRN ×3 (01:54→20:58)
[2017-11-26] MEDS: HALOPERIDOL 5 MG TABLET PO PRN ×3 (01:54→20:58)
[2017-11-26] MEDS: INSULIN REGULAR 100 UNITS/ML, 3ML VIAL SQ-INSULIN SCH ×4 (07:00→21:00)
[2017-11-26] MEDS: SENNA/DOCUSATE TABLET PO SCH (08:43)
[2017-11-26] MEDS: metFORMIN 500 MG TABLET PO SCH ×2 (08:43→20:08)
[2017-11-26 09:25] LABS: BASOPHILS # (AUTO) 0.03 x10^3/uL (0-0.1); BASOPHILS % (AUTO) 0 % (0-1); EOSINOPHILS # (AUTO) 0.31 x10^3/uL (0-0.4); EOSINOPHILS % (AUTO) 3 % (1-7); LYMPHOCYTES # (AUTO) 1.65 x10^3/uL (1-3.4); LYMPHOCYTES % (AUTO) 14 % (22-44); MD NO; MEAN CORPUSCULAR HEMOGLOBIN 31.1 pg (27.0-34.8); MEAN CORPUSCULAR HGB CONC 33.5 g/dL (32.4-35.8); MEAN CORPUSCULAR VOLUME 92.7 fL (80-100); MEAN PLATELET VOLUME 8.1 fL (7.4-10.4); MONOCYTES # (AUTO) 0.61 x10^3/uL (0.2-0.8); MONOCYTES % (AUTO) 5 % (2-9); NEUTROPHILS # (AUTO) 9.66 x10^3/uL (1.8-6.8); NEUTROPHILS % (AUTO) 79 % (42-75); PLATELET COUNT 264 x10^3/uL (130-400); RED BLOOD COUNT 4.14 x10^6/uL (3.82-5.3); RED CELL DISTRIBUTION WIDTH 14.2 % (9.6-15.2)
[2017-11-26 09:34] LABS: ALANINE AMINOTRANSFERASE 24 U/L (12-78); ALBUMIN 3.5 g/dL (3.4-5.0); ANION GAP 9 mmol/L (5-15); CALCIUM 8.2 mg/dL (8.5-10.1); CHLORIDE 103 mmol/L (98-107)
[2017-11-26 09:36] LABS: ALKALINE PHOSPHATASE 69 U/L (45-117); BILIRUBIN,TOTAL 0.5 mg/dL (0.2-1.0); TOTAL PROTEIN 6.7 g/dL (6.4-8.2)
[2017-11-26 15:26] VITALS: BP 119/74
[2017-11-26 20:33] VITALS: BP 135/86
[2017-11-26] MEDS: SIMVASTATIN 20 MG TABLET PO SCH (20:58)
[2017-11-26] MEDS: INSULIN GLARGINE 100 UNITS/ML, PEN SQ-INSULIN SCH (21:00)
[2017-11-27] MEDS: INSULIN REGULAR 100 UNITS/ML, 3ML VIAL SQ-INSULIN SCH ×4 (07:00→21:45)
[2017-11-27 08:09] VITALS: BP 145/87
[2017-11-27] MEDS: metFORMIN 500 MG TABLET PO SCH ×2 (08:28→17:32)
[2017-11-27] MEDS: SENNA/DOCUSATE TABLET PO SCH (08:29)
[2017-11-27] MEDS: LORazepam 1MG TABLET PO PRN ×2 (10:33→21:44)
[2017-11-27] MEDS: HALOPERIDOL 5 MG TABLET PO PRN ×2 (10:33→21:45)
[2017-11-27 12:52] LABS: BASOPHILS # (AUTO) 0.06 x10^3/uL (0-0.1); BASOPHILS % (AUTO) 0 % (0-1); EOSINOPHILS # (AUTO) 0.32 x10^3/uL (0-0.4); EOSINOPHILS % (AUTO) 2 % (1-7); LYMPHOCYTES # (AUTO) 1.91 x10^3/uL (1-3.4); LYMPHOCYTES % (AUTO) 13 % (22-44); MD NO; MEAN CORPUSCULAR HEMOGLOBIN 32.3 pg (27.0-34.8); MEAN CORPUSCULAR HGB CONC 34.5 g/dL (32.4-35.8); MEAN CORPUSCULAR VOLUME 93.4 fL (80-100); MEAN PLATELET VOLUME 8.1 fL (7.4-10.4); MONOCYTES # (AUTO) 0.94 x10^3/uL (0.2-0.8); MONOCYTES % (AUTO) 6 % (2-9); NEUTROPHILS # (AUTO) 11.94 x10^3/uL (1.8-6.8); NEUTROPHILS % (AUTO) 79 % (42-75); PLATELET COUNT 267 x10^3/uL (130-400); RED BLOOD COUNT 4.14 x10^6/uL (3.82-5.3); RED CELL DISTRIBUTION WIDTH 13.9 % (9.6-15.2)
[2017-11-27] MEDS: NICOTINE 7 MG/24 HR PATCH.TD24 TD SCH (17:33)
[2017-11-27 19:59] VITALS: BP 141/76
[2017-11-27] MEDS: SIMVASTATIN 20 MG TABLET PO SCH (21:44)
[2017-11-27] MEDS: INSULIN GLARGINE 100 UNITS/ML, PEN SQ-INSULIN SCH (21:46)
[2017-11-28] MEDS: INSULIN REGULAR 100 UNITS/ML, 3ML VIAL SQ-INSULIN SCH ×4 (07:14→20:53)
[2017-11-28 07:19] VITALS: BP_SYST 132; BP_SYST 145; BP_DIAS 72; BP_DIAS 99
[2017-11-28] MEDS: metFORMIN 500 MG TABLET PO SCH ×2 (08:22→16:35)
[2017-11-28] MEDS: SENNA/DOCUSATE TABLET PO SCH (08:22)
[2017-11-28] MEDS: LORazepam 1MG TABLET PO PRN ×3 (11:52→21:40)
[2017-11-28] MEDS: NICOTINE 7 MG/24 HR PATCH.TD24 TD SCH (16:34)
[2017-11-28 20:02] VITALS: BP 148/74
[2017-11-28] MEDS: INSULIN GLARGINE 100 UNITS/ML, PEN SQ-INSULIN SCH (20:51)
[2017-11-28] MEDS: SIMVASTATIN 20 MG TABLET PO SCH (20:58)
[2017-11-28] MEDS: HALOPERIDOL 5 MG TABLET PO PRN (21:41)
[2017-11-28] MEDS ORDERED: DEXTROSE 4 GM TAB.CHEW PO PRN (23:30)
[2017-11-28] MEDS ORDERED: GLUCAGON 1 MG IM PRN (23:30)
[2017-11-29 02:10] VITALS: BP 148/83
[2017-11-29] MEDS: LORazepam 1MG TABLET PO PRN ×3 (02:17→14:32)
[2017-11-29] MEDS: HALOPERIDOL 5 MG TABLET PO PRN (02:17)
[2017-11-29] MEDS: INSULIN REGULAR 100 UNITS/ML, 3ML VIAL SQ-INSULIN SCH ×2 (07:35→11:00)
[2017-11-29] MEDS: SENNA/DOCUSATE TABLET PO SCH (08:06)
[2017-11-29] MEDS: metFORMIN 500 MG TABLET PO SCH (08:06)
[2017-11-29 08:18] VITALS: BP 144/69
[2017-11-29] MEDS ORDERED: IBUPROFEN 600 MG TABLET ONE (10:05)
[2017-11-29] MEDS ORDERED: IBUPROFEN 200 MG TABLET PO ONE (10:30)
== END 2017-11-29 16:04 | DRG 885 ==
LOC: ED 06:16 → EDIP 10:12 → 3E 13:47 → OBSVTOIN 11-29 15:53
PROVIDERS: ADMIT Hospitalist; ATTEND Hospitalist
DX: F23 Brief psychotic disorder (principal); E11.22 Type 2 diabetes mellitus with diabetic chronic kidney disease; E11.40 Type 2 diabetes mellitus with diabetic neuropathy, unspecified; E87.2 Acidosis; D72.829 Elevated white blood cell count, unspecified; E11.65 Type 2 diabetes mellitus with hyperglycemia; E78.00 Pure hypercholesterolemia, unspecified; E78.5 Hyperlipidemia, unspecified; F12.10 Cannabis abuse, uncomplicated; F17.210 Nicotine dependence, cigarettes, uncomplicated; F31.9 Bipolar disorder, unspecified; G89.29 Other chronic pain; I12.9 Hypertensive chronic kidney disease with stage 1 through stage 4 chronic kidney disease, or unspecified chronic kidney disease; N25.0 Renal osteodystrophy; N18.3 Chronic kidney disease, stage 3 (moderate); Z89.412 Acquired absence of left great toe
CPT/HCPCS: 36415; 80053; 80307; 80329; 81003; 82140; 82962; 84439; 84443; 84703; 85025; 85610; 93005; 99285; G0378; J1815; G0480

== ENCOUNTER 2017-12-06 16:19 | Emergency (ER) | payer MEDICAID ==
[~2017-12-06] VITALS: Ht 167.6 cm; Wt 108.5 kg
[~2017-12-06 16:19] MED LIST changes: +INSU100I28 SC; +LINA5TAB PO; +LISI-167 PO; +METF10002 PO
[2017-12-06 16:23] VITALS: BP 153/87
[2017-12-06] MEDS ORDERED: TRAZODONE PO (18:39)
== END 2017-12-06 18:43 ==
LOC: ED 18:37
DX: F31.9 Bipolar disorder, unspecified (principal); Z76.0 Encounter for issue of repeat prescription; E11.9 Type 2 diabetes mellitus without complications; L40.9 Psoriasis, unspecified; E78.00 Pure hypercholesterolemia, unspecified; Z89.412 Acquired absence of left great toe
CPT/HCPCS: 99281

== ENCOUNTER 2017-12-09 22:48 | Emergency (ER) | payer MEDICAID ==
[~2017-12-09] VITALS: Ht 167.6 cm; Wt 105.0 kg
[~2017-12-09 22:48] MED LIST changes: +TRAZODONE PO
[2017-12-09 22:58] VITALS: BP 153/73
[2017-12-09] MEDS ORDERED: SULFAMETH./TRIMETHOPRIM DS 800MG/160MG TABLET ONE ×2 (23:13→23:17)
[2017-12-09] MEDS ORDERED: SULFAMETH./TRIMETHOPRIM DS 800MG/160MG TABLET PO ONE (23:30)
== END 2017-12-10 00:42 | disposition home or self-care (01) ==
LOC: ED 23:31
DX: B37.9 Candidiasis, unspecified (principal); L89.893 Pressure ulcer of other site, stage 3; L08.9 Local infection of the skin and subcutaneous tissue, unspecified; E78.00 Pure hypercholesterolemia, unspecified; E11.9 Type 2 diabetes mellitus without complications; F31.9 Bipolar disorder, unspecified; F17.200 Nicotine dependence, unspecified, uncomplicated; Z89.412 Acquired absence of left great toe
CPT/HCPCS: 87070; 87077; 87147; 87186; 87205; 99285

== ENCOUNTER 2019-09-14 18:32 | Emergency (ER) | payer MEDICAID ==
[~2019-09-14] VITALS: Ht 170.2 cm; Wt 90.0 kg
[~2019-09-14 18:32] MED LIST changes: -METF10002 PO; +METF10007 PO; -ONDA4VIA4 IVPush; +ONDA4VIA60 IVPush; +SIMV20TA19 PO; -SIMV20TA3 PO
--- NOTE | 2019-09-14 19:11 | NUR ---
NOT IN LOBBY AT THIS TIME.
--- NOTE | 2019-09-14 19:22 | NUR ---
CALLED FOR 2ND TIME , NOT IN LOBBY
--- NOTE | 2019-09-14 19:30 | NUR ---
NOT IN LOBBY 3RD TIME
--- NOTE | 2019-09-14 19:41 | NUR ---
PT FOUND IN LOBBY AT THIS TIME. WALKED TO ROOM WITH STEADY GAIT. SPECIALIST AT BEDSIDE.
[2019-09-14 20:16] VITALS: BP 173/74
--- NOTE | 2019-09-14 20:17 | NUR ---
SPECIALIST COMPLETED. MEDICATIONS TO BE GIVEN THEN D/C. PATIENT AGREEABLE WITH PLAN.
[2019-09-14] MEDS ORDERED: MOXIFLOXACIN OPHTH O.5%, 3ML LEFTEYE SCH (20:30)
[2019-09-14] MEDS ORDERED: DIPH,PERTUSS(ACELL),TET VAC/PF 0.5 ML IM-VACC ONE ×3 (20:30→20:34)
[2019-09-14] MEDS ORDERED: CYCLOPENTOLATE OPHTH SOLN 1%, 15ML LEFTEYE ONE (20:30)
[2019-09-14] MEDS ORDERED: PLEASE ENTER HEIGHT AND WEIGHT MC SCH ×2 (20:30)
[2019-09-14] MEDS ORDERED: ERYTHROMYCIN OPHTH 0.5%, 1GM LEFTEYE ONE (20:30)
--- NOTE | 2019-09-14 20:41 | NUR ---
PT MEDICATED PER SEP. DICUSSED MEDICATION WITH PATIENT WHICH SHE VERBALIZED UNDERSTANDING.
== END 2019-09-14 19:32 ==
LOC: ED 19:25
DX: H16.012 Central corneal ulcer, left eye (principal); E78.00 Pure hypercholesterolemia, unspecified; E11.9 Type 2 diabetes mellitus without complications
CPT/HCPCS: 90471; 90715